=== PATIENT | female | born 1985 | race Caucasian/White ===

== ENCOUNTER 2020-07-24 09:11 | Outpatient (CLI) | payer OTHER ==
[~2020-07-24] VITALS: Ht 165.1 cm; Wt 120.4 kg
[~2020-07-24 09:11] MED LIST: ALPR0.5T7 PO; CETI10TA76 PO
[2020-07-24 09:27] LABS: MICROSCOPIC NOT IND
[2020-07-24 09:28] VITALS: BP 116/77
[2020-07-24 09:43] LABS: BASOPHILS % (AUTO) 1 % (0-1); EOSINOPHILS % (AUTO) 1 % (1-7); LYMPHOCYTES % (AUTO) 21 % (22-44); MD NO; MEAN PLATELET VOLUME 10.7 fL (7.4-10.4); MONOCYTES % (AUTO) 6 % (2-9); NEUTROPHILS % (AUTO) 71 % (42-75); PLATELET COUNT 101 x10^3/uL (130-400); RED BLOOD COUNT 4.55 x10^6/uL (3.82-5.3); RED CELL DISTRIBUTION WIDTH 13.2 % (9.6-15.2)
[2020-07-24 09:52] LABS: ALANINE AMINOTRANSFERASE 13 U/L (12-78); ALBUMIN 2.4 g/dL (3.4-5.0); ANION GAP 9 mmol/L (5-15); CALCIUM 8.6 mg/dL (8.5-10.1); CHLORIDE 110 mmol/L (98-107); CREATININE 0.58 mg/dL (0.55-1.02)
[2020-07-24 09:55] LABS: BILIRUBIN, DIRECT < 0.1 mg/dL (0.1-0.2)
[2020-07-24 09:56] LABS: ALKALINE PHOSPHATASE 140 U/L (45-117); BILIRUBIN,TOTAL 0.3 mg/dL (0.2-1.0); TOTAL PROTEIN 5.7 g/dL (6.4-8.2)
== END 2020-07-24 10:30 | disposition home or self-care (01) ==
LOC: LDOP 09:11
PROVIDERS: ATTEND Obstetrics & Gynecology
DX: O16.3 Unspecified maternal hypertension, third trimester (principal); Z3A.36 36 weeks gestation of pregnancy
CPT/HCPCS: 36415; 59025; 80053; 81003; 82248; 82570; 84156; 84550; 85025

== ENCOUNTER 2020-08-17 09:35 | Inpatient (IN) | payer OTHER ==
[~2020-08-17] VITALS: Ht 162.6 cm; Wt 122.7 kg
[2020-08-17 21:15] VITALS: BP 118/73
[2020-08-17] MEDS ORDERED: D5%-LACTATED RINGERS 1,000 ML IV SCH (21:30)
[2020-08-17] MEDS ORDERED: OXYTOCIN 30U/ 0.9% NaCL 500ML 500 ML IV PRN (21:30)
[2020-08-17] MEDS ORDERED: ONDANSETRON 2MG/ML, 2ML IVPush PRN (21:30)
[2020-08-17] MEDS ORDERED: CALCIUM CARBONATE 500 MG TAB.CHEW PO PRN (21:30)
[2020-08-17] MEDS ORDERED: TERBUTALINE 1 MG/ML, 1ML SQ PRN (21:30)
[2020-08-17] MEDS ORDERED: SODIUM CITRATE/CITRIC ACID 30 ML UDC PO PRN (21:30)
[2020-08-17] MEDS ORDERED: FENTANYL PF 100 MCG/2ML IVPush PRN (21:30)
[2020-08-17] MEDS ORDERED: PENICILLIN GK 5,000,000 UNITS in DEXTROSE 5% 100 ML IVPB ONE (21:30)
[2020-08-17] MEDS ORDERED: TERBUTALINE 1 MG/ML, 1ML IVPush PRN (21:30)
[2020-08-17] MEDS ORDERED: PLEASE ENTER HEIGHT AND WEIGHT MC SCH (21:30)
[2020-08-17] MEDS ORDERED: FENTANYL PF 100 MCG/2ML IV PRN (21:30)
[2020-08-17] MEDS ORDERED: MISOPROSTOL 25 MCG TABLET VG PRN (21:30)
[2020-08-17 21:49] LABS: BASOPHILS % (AUTO) 1 % (0-1); EOSINOPHILS % (AUTO) 1 % (1-7); LYMPHOCYTES % (AUTO) 24 % (22-44); MEAN CORPUSCULAR HEMOGLOBIN 30.7 pg (27.0-34.8); MEAN CORPUSCULAR HGB CONC 34.7 g/dL (32.4-35.8); MEAN PLATELET VOLUME 12.4 fL (7.4-10.4); MONOCYTES % (AUTO) 6 % (2-9); NEUTROPHILS % (AUTO) 69 % (42-75); PLATELET COUNT 93 x10^3/uL (130-400); RED BLOOD COUNT 4.59 x10^6/uL (3.82-5.3); RED CELL DISTRIBUTION WIDTH 12.8 % (9.6-15.2)
[2020-08-17 21:50] LABS: MD NO
[2020-08-17] MEDS ORDERED: NEWBORN KIT ONE (22:11)
[2020-08-17] MEDS ORDERED: LIDOCAINE 1%, 20ML ONE (22:11)
[2020-08-17] MEDS ORDERED: MISOPROSTOL 200 MCG TABLET ONE (22:11)
[2020-08-17] MEDS: LACTATED RINGERS 1,000 ML IV SCH (22:30)
[2020-08-17] MEDS ORDERED: MISOPROSTOL 25 MCG TABLET ONE (23:09)
[2020-08-18] MEDS: PENICILLIN GK 2,500,000 UNITS in DEXTROSE 5% 100 ML IVPB SCH ×2 (05:18→09:10)
[2020-08-18] MEDS ORDERED: OXYTOCIN 30U/ 0.9% NaCL 500ML 500 ML ONE ×2 (05:24→14:12)
[2020-08-18] MEDS: LACTATED RINGERS 1,000 ML IV SCH ×2 (07:00→08:40)
[2020-08-18 08:26] LABS: BASOPHILS % (AUTO) 1 % (0-1); EOSINOPHILS % (AUTO) 1 % (1-7); LYMPHOCYTES % (AUTO) 27 % (22-44); MEAN CORPUSCULAR HEMOGLOBIN 30.5 pg (27.0-34.8); MEAN CORPUSCULAR HGB CONC 33.9 g/dL (32.4-35.8); MEAN PLATELET VOLUME 11.2 fL (7.4-10.4); MONOCYTES % (AUTO) 6 % (2-9); NEUTROPHILS % (AUTO) 65 % (42-75); PLATELET COUNT 82 x10^3/uL (130-400); RED BLOOD COUNT 4.55 x10^6/uL (3.82-5.3); RED CELL DISTRIBUTION WIDTH 13.3 % (9.6-15.2)
[2020-08-18 08:27] LABS: MD NO
[2020-08-18] MEDS ORDERED: FENTANYL/BUPIV./NS/PF 250 ML EPIDCONT ONE (08:37)
[2020-08-18] MEDS ORDERED: BUPIVACAINE 0.25% ONE (08:37)
[2020-08-18] MEDS ORDERED: EPHEDRINE 50 MG/ML, 1ML IVPush PRN (09:00)
[2020-08-18] MEDS ORDERED: DIPHENHYDRAMINE 50 MG/ML, 1ML IVPush PRN (09:00)
[2020-08-18] MEDS ORDERED: NALOXONE 0.4 MG/ML, 1ML IVPush PRN (09:00)
[2020-08-18] MEDS ORDERED: LACTATED RINGERS 1,000 ML IVBOLUS PRN (09:00)
[2020-08-18] MEDS ORDERED: ONDANSETRON 2MG/ML, 2ML IVPush PRN (09:00)
[2020-08-18] MEDS ORDERED: FENTANYL/BUPIV./NS/PF 250 ML EPIDCONT SCH (09:00)
[2020-08-18] MEDS ORDERED: LACTATED RINGERS 1,000 ML IV SCH (09:00)
[2020-08-18] MEDS ORDERED: AMPICILLIN 1 GM in SODIUM CHLORIDE 0.9% 100 ML IV SCH (13:00)
[2020-08-18] MEDS ORDERED: SIMETHICONE 80 MG CHEW TAB PO PRN (14:00)
[2020-08-18] MEDS ORDERED: ONDANSETRON 2MG/ML, 2ML IV PRN (14:00)
[2020-08-18] MEDS ORDERED: OXYcodone IR 5MG TABLET PO PRN (14:00)
[2020-08-18] MEDS ORDERED: MISOPROSTOL 200 MCG TABLET PR PRN (14:00)
[2020-08-18] MEDS ORDERED: IBUPROFEN 600 MG TABLET PO PRN (14:00)
[2020-08-18] MEDS: OXYTOCIN 30U/ 0.9% NaCL 500ML 500 ML IV SCH (14:18)
[2020-08-18] MEDS ORDERED: ACETAMINOPHEN 325 MG TABLET PO PRN (14:30)
[2020-08-18] MEDS ORDERED: ACETAMINOPHEN 325 MG TABLET ONE (14:57)
[2020-08-18 15:40] VITALS: BP 126/77
[2020-08-18] MEDS: DOCUSATE 100 MG CAPSULE PO PRN (19:45)
[2020-08-18] MEDS: ACETAMINOPHEN 325 MG TABLET PO PRN (19:46)
[2020-08-18] MEDS: OXYcodone/APAP 5/325MG TABLET PO PRN (19:47)
[2020-08-18 20:00] VITALS: BP 132/82
[2020-08-18 22:29] LABS: BASOPHILS % (AUTO) 0 % (0-1); EOSINOPHILS % (AUTO) 1 % (1-7); LYMPHOCYTES % (AUTO) 18 % (22-44); MEAN CORPUSCULAR HEMOGLOBIN 30.5 pg (27.0-34.8); MEAN PLATELET VOLUME 11.2 fL (7.4-10.4); MONOCYTES % (AUTO) 5 % (2-9); NEUTROPHILS % (AUTO) 75 % (42-75); PLATELET COUNT 75 x10^3/uL (130-400); RED BLOOD COUNT 4.18 x10^6/uL (3.82-5.3)
[2020-08-18 22:30] LABS: MD NO
[2020-08-19] VITALS: BP 134/80
[2020-08-19] MEDS: OXYcodone/APAP 5/325MG TABLET PO PRN ×2 (04:10→11:48)
[2020-08-19] MEDS: ACETAMINOPHEN 325 MG TABLET PO PRN ×2 (04:10→11:48)
[2020-08-19 04:13] VITALS: BP 100/63
[2020-08-19 07:13] VITALS: BP 120/81
[2020-08-19] MEDS: DOCUSATE 100 MG CAPSULE PO PRN (07:32)
[2020-08-19] MEDS ORDERED: PRENATAL VIT/IRON/FA 1 EACH TABLET PO SCH (09:00)
[2020-08-19] MEDS: OXYTOCIN 30U/ 0.9% NaCL 500ML 500 ML IV SCH ×2 (10:00)
[2020-08-19 11:33] LABS: BASOPHILS % (AUTO) 1 % (0-1); EOSINOPHILS % (AUTO) 1 % (1-7); LYMPHOCYTES % (AUTO) 24 % (22-44); MEAN CORPUSCULAR HEMOGLOBIN 30.5 pg (27.0-34.8); MEAN CORPUSCULAR HGB CONC 33.5 g/dL (32.4-35.8); MEAN PLATELET VOLUME 11.2 fL (7.4-10.4); MONOCYTES % (AUTO) 5 % (2-9); NEUTROPHILS % (AUTO) 69 % (42-75); PLATELET COUNT 80 x10^3/uL (130-400); RED BLOOD COUNT 4.06 x10^6/uL (3.82-5.3); RED CELL DISTRIBUTION WIDTH 13.5 % (9.6-15.2)
[2020-08-19 11:46] LABS: ALANINE AMINOTRANSFERASE 17 U/L (12-78); ALBUMIN 2.2 g/dL (3.4-5.0); ANION GAP 5 mmol/L (5-15); CALCIUM 8.3 mg/dL (8.5-10.1); CHLORIDE 111 mmol/L (98-107)
[2020-08-19 11:48] LABS: ALKALINE PHOSPHATASE 129 U/L (45-117); BILIRUBIN,TOTAL 0.2 mg/dL (0.2-1.0); TOTAL PROTEIN 5.6 g/dL (6.4-8.2)
[2020-08-19 11:55] LABS: MD SCAN
[2020-08-19] MEDS ORDERED: DIPH,PERTUSS(ACELL),TET VAC/PF NC IM-VACC ONE ×2 (13:48→14:30)
[2020-08-19] MEDS ORDERED: IBUP-1222 PO (13:56)
== END 2020-08-19 15:15 | disposition home or self-care (01) | DRG 806 ==
LOC: LDIP 21:04 → 2NW 08-18 15:29
PROVIDERS: ADMIT Obstetrics & Gynecology; ATTEND Obstetrics & Gynecology
PROC: 10E0XZZ Delivery of Products of Conception, External Approach (ICD-10-PCS; principal; 2020-08-18)
DX: O69.1XX0 Labor and delivery complicated by cord around neck, with compression, not applicable or unspecified (principal); O99.12 Other diseases of the blood and blood-forming organs and certain disorders involving the immune mechanism complicating childbirth; Z37.0 Single live birth; D69.6 Thrombocytopenia, unspecified; Z3A.38 38 weeks gestation of pregnancy; Z20.822 Contact with and (suspected) exposure to COVID-19
CPT/HCPCS: 36415; J3490; 80053; 85025; 86592; 86850; 86900; 87635; 90715; G0378; J0290; J2540; J2590; J3010; J7120